=== PATIENT | female | born 1935 ===

== ENCOUNTER 2020-03-21 08:16 | Day surgery (SDC) | payer OTHER ==
[~2020-03-21 08:16] MED LIST: ATORVASTATIN CA40 MG PO; CARDIZEM CD240 MG PO; SYNTHROID50 MCG PO; XANAX XR0.5 MG PO
[2020-03-21] MEDS ORDERED: ULTRACET PO (12:42)
== END 2020-03-21 15:45 | disposition home or self-care (01) ==
LOC: CIR.AMB 08:16
PROVIDERS: ATTEND Obstetrics & Gynecology Gynecology
DX: N81.6 Rectocele (principal); N81.5 Vaginal enterocele; Z20.828 Contact with and (suspected) exposure to other viral communicable diseases